=== PATIENT | female | born 2000 | race American Indian/Alaskan Native ===

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

== ENCOUNTER 2019-06-26 15:37 | Outpatient (CLI) | payer MEDICAID ==
[2019-06-26 16:45] VITALS: BP 124/72
--- NOTE | 2019-06-26 20:16 | Ultrasound Report ---
ULTRASOUND BIOPHYSICAL PROFILE INDICATION / CLINICAL INFORMATION: JERED. well-being. COMPARISON: None available. FINDINGS: BREATHING MOVEMENT = 2 GROSS BODY MOVEMENT = 2 TONE = 2 QUALITATIVE AMNIOTIC FLUID VOLUME = 2 TOTAL BIOPHYSICAL SCORE = 8/8 AMNIOTIC FLUID INDEX (cm) = 7.8 PRESENTATION: Cephalic. HEART RATE (beats per minute): 169 IMPRESSION: 1. biophysical profile = 06/19 JERED measures 7.8, borderline low. Signer Name: Andrea Barbosa MD Signed: 06/26/2019 8:11 PM Workstation Name: [employer]
== END 2019-06-26 18:50 | disposition home or self-care (01) ==
LOC: TRG 15:37
PROVIDERS: ATTEND Obstetrics & Gynecology
DX: O47.1 False labor at or after 37 completed weeks of gestation (principal); Z3A.38 38 weeks gestation of pregnancy
CPT/HCPCS: 59025; 76815; 76819

== ENCOUNTER 2019-07-23 14:59 | Inpatient (IN) | payer MEDICAID ==
[2019-07-23] MEDS ORDERED: XYLOCAINE 2% INFILTRATI ONE (15:24)
[2019-07-23] MEDS ORDERED: BRETHINE IVP PRN (15:24)
[2019-07-23] MEDS ORDERED: CERVIDIL VG ONE (15:24)
[2019-07-23] MEDS ORDERED: BRETHINE SUB-Q PRN (15:24)
[2019-07-23] MEDS ORDERED: MINERAL OIL PO PRN (15:24)
[2019-07-23] MEDS ORDERED: PITOCin/NS 20 UNIT/1000ML DRIP 20 UNITS/1,000 ML BAG IV SCH (16:00)
[2019-07-23] MEDS ORDERED: PITOCin/NS 30 UNIT/500ML 30 UNITS/500 ML BAG IV SCH (16:00)
[2019-07-23] MEDS ORDERED: LACTATED RINGERS 1,000 ML IV SCH (16:00)
[2019-07-23 16:22] LABS: Hematocrit 36.9 % (30.3-42.9); Hemoglobin 12.2 gm/dl (10.1-14.3); Mean Corpuscular HGB Conc 33 % (30-34); Mean Corpuscular Volume 91 fl (79-97); Platelet Count 232 K/mm3 (140-440); Red Blood Count 4.03 M/mm3 (3.65-5.03); Red Cell Distribution Width 17.5 % (13.2-15.2)
--- NOTE | 2019-07-23 18:24 | History and Physical Report ---
History of Present Illness Date of examination: 07/23/19 Date of admission: 07/23/19 14:59 Chief complaint: Sent from office for induction of labor due to oligohydramnios. History of present illness: Late entry to care, 3rd trimester complicated by a abnormal 1hour GTT, followed by a normal 3hour GTT. Past History Past Medical History: no pertinent history Past Surgical History: no surgical history Family/Genetic History: cancer (Father: Stomach Ca) Social history: no significant social history, single - Obstetrical History Expected Date of Delivery: 07/16/19 Actual Gestation: 41 Week(s) 0 Day(s) : 1 Medications and Allergies Allergies Allergy/AdvReac Type Severity Reaction Status Date / Time No Known Allergies Allergy Unverified 06/26/19 17:18 Home Medications Medication Instructions Recorded Confirmed Last Taken Type Ferrous Sulfate [Iron 325 MG] 325 mg PO DAILY 06/26/19 06/26/19 Unknown History Active Meds: Active Medications Ephedrine Sulfate (Ephedrine Sulfate) 10 mg IV Q2M PRN PRN Reason: Hypotension Oxytocin/Sodium Chloride (Pitocin/Ns 20 Unit/1000ml Drip) 20 units in 1,000 mls @ 125 mls/hr IV DIRECT SAIRA Oxytocin/Sodium Chloride (Pitocin/Ns 30 Unit/500ml) 30 units in 500 mls @ 1 mls/hr IV TITR SAIRA; Protocol Lactated Ringer's (Lactated Ringers) 1,000 mls @ 125 mls/hr IV DIRECT SAIRA Last Admin: 07/23/19 16:30 Dose: 125 mls/hr Documented by: Mineral Oil (Mineral Oil) 30 ml PO QHS PRN PRN Reason: Constipation Terbutaline Sulfate (Brethine) 0.25 mg SUB-Q ONCE PRN PRN Reason: Hyperstimulation/Hypertonicity Terbutaline Sulfate (Brethine) 0.25 mg IVP ONCE PRN PRN Reason: Hyperstimulation/Hypertonicity Review of Systems All systems: negative - Vital Signs Vital signs: Vital Signs Pulse BP 85 119/69 07/23/19 15:29 07/23/19 15:29 Temp Pulse Resp BP Pulse Ox 98.5 F 85 18 119/69 07/23/19 15:30 07/23/19 15:29 07/23/19 15:30 07/23/19 15:29 - Physical Exam Breasts: Positive: normal, mass Lungs: Positive: Clear to auscultation, Normal air movement Abdomen: Positive: normal appearance, soft, normal bowel sounds Genitourinary (Female): Positive: normal external genitalia, normal perenium Vagina: Positive: normal moisture Uterus: Positive: enlarged Anus/Rectum: Positive: normal perianal skin Extremities: Positive: normal - Obstetrical FHR: category 1 Uterine Contraction Monitor Mode: External Cervical Dilatation: 1 Cervical Effacement Percentage: 30 station: 1 Uterine Contraction Pattern: Irregular Uterine Tone Measurement Phase: Resting Uterine Contraction Intensity: Mild Results Result Diagrams: 07/23/19 16:09 Abnormal lab results 07/23/19 Range/Units 16:09 RDW 17.5 H (13.2-15.2) % All other labs normal. Assessment and Plan A: IUP @ 41 Weeks Category I Tracing Oligo GBS Negative P: Admit to L&D per Routine Orders Cervidil Induction
[2019-07-24] MEDS ORDERED: STADOL ONE (02:37)
[2019-07-24] MEDS ORDERED: CYTOTEC ONE (04:32)
[2019-07-24] MEDS ORDERED: METHERGINE IM ONE ×2 (04:33→05:24)
[2019-07-24] MEDS ORDERED: XYLOCAINE 2% INFILTRATI ONE (04:35)
[2019-07-24] MEDS ORDERED: CYTOTEC PR ONE (05:26)
[2019-07-24] MEDS ORDERED: NORCO 5/325 PO PRN (05:27)
[2019-07-24] MEDS ORDERED: MILK OF MAGNESIA PO PRN (05:27)
[2019-07-24] MEDS ORDERED: LANSINOH TP PRN (05:27)
[2019-07-24] MEDS ORDERED: BENADRYL PO PRN (05:27)
[2019-07-24] MEDS ORDERED: DULCOLAX PR PRN (05:27)
[2019-07-24] MEDS ORDERED: TUCKS PAD TP PRN ×2 (05:27→20:25)
--- NOTE | 2019-07-24 05:37 | Procedure Note ---
OB Delivery Note - Delivery Date of Delivery: 07/24/19 (0425) Surgeon: WILFRIDO YI Estimated blood loss: other (400) - Vaginal Delivery presentation: vertex Delivery position: OA Intrapartum events: none Delivery induction: cervidil Delivery monitor: external FHT, external uterine Route of delivery: Delivery placenta: spontaneous Delivery cord: nuchal cord (x2), 3 umbilical vessels Delivery laceration: 2nd degree Delivery repair: vicryl Anesthesia: local Delivery comments: of a live 7'1 female over a 2nd degree perineal laceration under IV pain control with Apgars of 8 and 9 at 0425 on 07/24/2019. Tight nuchal cord x 2, manually reduced with delivery of the body. directly to maternal abd/chest, skin to skin contact. Spontaneous delivery of the placenta complete and intact with Piña side presenting at 0430. Heavy uterine bleeding after placental delivery; given Cytotec 1000mcg per rectum and Metrhergine 0.2mg IM. Uterine bleeding became light with external uterine massage. Perineal laceration repaired with 2-[address]-1 under local 2% Lidocaine. Delayed cord clamping and cutting; Cord cut by Maternal Grandmother. Cord blood collected; Placenta discarded. - A at 1 minute: 8 at 5 minutes: 9 Gender: Female (7'1)
[2019-07-24] MEDS ORDERED: SODIUM CHLORIDE FLUSH SYRINGE 10 ML IV NR (06:00)
[2019-07-24] MEDS ORDERED: STADOL IV PRN (07:00)
[2019-07-24] MEDS ORDERED: TYLENOL PO PRN (11:00)
[2019-07-24 13:06] LABS: Hematocrit 28.6 % (30.3-42.9); Hemoglobin 9.4 gm/dl (10.1-14.3)
[2019-07-24] MEDS ORDERED: DERMOPLAST TP PRN (20:25)
[2019-07-24] MEDS: FEOSOL PO SCH (21:18)
[2019-07-24] MEDS: IBUPROFEN PO SCH (21:19)
[2019-07-25] MEDS: FEOSOL PO SCH ×2 (10:04→22:19)
[2019-07-25] MEDS: PRENATAL VITAMIN PO SCH (10:04)
[2019-07-25] MEDS: IBUPROFEN PO SCH ×2 (10:04→22:18)
--- NOTE | 2019-07-25 11:03 | Progress Note ---
Assessment and Plan - Patient Problems (1) Status post normal vaginal delivery Current Visit: Yes Status: Acute Plan to address problem: PPD 1 - stable Continue routine orders Anticipate discharge in 24 hours (2) Anemia due to blood loss, acute Current Visit: Yes Status: Acute Plan to address problem: Asymptomatic Continue iron therapy Subjective - Subjective Date of service: 07/25/19 Principal diagnosis: PPD #1; s/p Interval history: see H&P and OB Delivery Procedure Note Patient reports: appetite normal, voiding normally, pain well controlled, ambulating normally, no dizzy ambulation [place]: doing well, nursing well Objective - Vital Signs Latest vital signs: Vital Signs Temp Pulse Resp BP BP Pulse Ox 07/25/19 08:58 98.2 F 18 113/73 07/25/19 00:05 98.4 F 77 19 101/72 07/24/19 16:56 98.0 F 18 111/70 07/24/19 11:15 98.8 F 104 H 18 128/80 99 Intake and Output 07/24/19 07/25/19 07/25/19 23:59 07:59 15:59 Intake Total 240 Balance 240 Intake: Oral 240 Other: Total, Intake Amount 240 # Voids Void 1 - Exam Abdomen: Present: normal appearance, soft Vulva: both: laceration/episiotomy (well approximated) Uterus: Present: normal, firm, fundal height at umbilicus Extremities: Present: normal Comments: small lochia - Labs Labs: Abnormal lab results 07/24/19 Range/Units 12:22 Hgb 9.4 L (10.1-14.3) gm/dl Hct 28.6 L D (30.3-42.9) %
[2019-07-26] MEDS: IBUPROFEN PO SCH ×3 (06:49→10:50)
[2019-07-26] MEDS: PRENATAL VITAMIN PO SCH ×2 (10:49→10:50)
[2019-07-26] MEDS: FEOSOL PO SCH ×2 (10:49→10:50)
--- NOTE | 2019-07-26 10:59 | Progress Note ---
Assessment and Plan A: day 2 S/P spontaneous vaginal delivery. Anemia secondary to and blood loss. P: Discharge patient home today when baby is able to go. Discussed with patient discharge instructions and warning signs. Care of perineal stitches discussed with pt. Advised patient to continue taking her vitamin daily at home and instructed her to continue taking her iron supplements at home twice daily. Advised patient to avoid intercourse, lifting and heavy housework. Advised patient to follow up at [facility] in 6 weeks for exam and sooner if any problems. Patient voiced understanding of all instructions. Subjective - Subjective Date of service: 07/26/19 Principal diagnosis: PPD #2; s/p Interval history: day 2 S/P spontaneous vaginal delivery. Doing well. Wants to go home today. . Voiding without difficulty, ambulating well, tolerating a regular diet. Reports a small amount of lochia. Patient denies headache, cough, shortness of breath, chest pain, abdominal pain, leg pain, heavy vaginal bleeding, swelling, or dizziness. Patient reports: appetite normal, voiding normally, pain well controlled, flatus, ambulating normally, no dizzy ambulation, no nauseated Cook: doing well Objective - Vital Signs Latest vital signs: Vital Signs Temp Pulse Resp BP BP Pulse Ox 07/26/19 08:27 98.1 F 18 112/69 07/26/19 08:20 98.1 F 92 H 18 112/69 07/26/19 00:22 98.5 F 96 H 18 112/57 07/25/19 16:54 98.3 F 86 18 108/62 98 Intake and Output 07/25/19 07/26/19 07/26/19 23:59 07:59 15:59 Intake Total 240 480 Balance 240 480 Intake: Intake, Free Water 240 480 Other: # Voids Void 2 2 - Exam Cardiovascular: Present: Regular rate, Normal S1, Normal S2, No murmurs Lungs: Present: Clear to auscultation Abdomen: Present: normal appearance, soft, normal bowel sounds. Absent: distention, tenderness, guarding, rigidity Uterus: Present: normal, firm, fundal height below umbilicus. Absent: bogginess, tenderness Extremities: Present: normal. Absent: tenderness, edema
--- NOTE | 2019-07-26 11:03 | Discharge Summary ---
Providers - Providers Date of Admission: 07/23/19 14:59 Date of discharge: 07/26/19 Attending physician: JUANY PYLE MD None Primary care physician: HEIDE VENEGAS MD Hospitalization Reason for admission: induction of labor Delivery: Laceration: 2nd degree Other procedures: none complications: none Discharge diagnosis: IUP at term delivered baby: female Pertinent studies: Labs Hospital course: Normal hospital course Condition at discharge: Good Disposition: DC-01 TO HOME OR SELFCARE - Discharge Diagnoses (1) Term delivered Status: Acute (2) Anemia due to blood loss Status: Acute Plan - Provider Discharge Summary Activity: routine, no sex for 6 weeks, no heavy lifting 4 weeks, no strenuous exercise Diet: routine Instructions: routine Additional instructions: Continue taking your vitamins at home. Continue taking your iron supplements at home. Call your doctor immediately for: * Fever > 100.5 * Heavy vaginal bleeding ( >1 pad per hour) * Severe persistent headache * Shortness of breath * Reddened, hot, painful area to leg or breast - Follow up plan Follow up: HEIDE VENEGAS MD [Primary Care Provider] - 6 Weeks
[2019-07-26 19:03] VITALS: BP 117/78
== END 2019-07-26 15:50 | disposition home or self-care (01) | DRG 775 ==
LOC: LD 14:59 → OB 07-24 11:38
PROVIDERS: ADMIT Obstetrics & Gynecology; ATTEND Obstetrics & Gynecology
PROC: 10E0XZZ Delivery of Products of Conception, External Approach (ICD-10-PCS; principal; 2019-07-24)
PROC: 0KQM0ZZ Repair Perineum Muscle, Open Approach (ICD-10-PCS; 2019-07-24)
PROC: 3E0P7VZ Introduction of Hormone into Female Reproductive, Via Natural or Artificial Opening (ICD-10-PCS; 2019-07-24)
DX: O41.03X0 Oligohydramnios, third trimester, not applicable or unspecified (principal); O69.1XX0 Labor and delivery complicated by cord around neck, with compression, not applicable or unspecified; O99.02 Anemia complicating childbirth; D62 Acute posthemorrhagic anemia; O70.1 Second degree perineal laceration during delivery; Z37.0 Single live birth; Z3A.41 41 weeks gestation of pregnancy; Z80.8 Family history of malignant neoplasm of other organs or systems
CPT/HCPCS: 36415; 59200; 85014; 85018; 85027; 86592; 86850; 86900; 86901; G0378; J0595; J2210; J2590; J7120